=== PATIENT | male | born 1945 | race Caucasian/White ===

== ENCOUNTER → 2018-06-23 | Outpatient (CLI) | payer MEDICARE, BC ==
--- NOTE | 2018-06-23 17:01 | PCVCIMAG ---
APPROVED REPORT Study performed: 06/23/2018 13:55:09 Exam: Stress Echocardiogram Indication: Syncope Patient Location: Echo lab Stress Nurse: Tia Duran RN Room #: 2 Status: routine Ht: 5 ft 8 in HR: 84 bpm BP: 138/72 mmHg Rhythm: NSR Medical History Medical History: Diabetes Cardiac Risk Factors: DM Previous Cardiac Procedures: NONE Pretest Chest Pain Characteristics: No chest pain Exercise History: Indeterminate Procedure The patient underwent an Exercise Stress Test using the Raymond Protocol. Blood pressure, heart rate, and EKG were monitored. An Echocardiogram was performed by senior telecommunications technician in four stages in quad fashion. At peak stress, four selected images were obtained and placed side by side with resting images for comparison. Stress Test Details Stress Test: Exercise stress testing was performed using a Raymond protocol. HR Resting HR: 81 bpmMax Heart Rate (APMHR): 146 bpm Max HR Achieved: 166 bpmTarget HR (85% APMHR): 124 bpm % of APMHR: 113 Recovery HR: 100 bpm HR response to stress: Normal HR response to stress BP Resting BP: 138/72 mmHg Max BP: 162/80 mmHg Recovery BP: 136/78 mmHg BP response to stress: Normal blood pressure response to stress. ECG Resting ECG: Sinus Rhythm, nonspecific ST-T abnormalities Stress ECG: Sinus Rhythm, NSSTT changes ST Change: Normal Maximum ST Deviation: 0 mm Arrhythmia: Rare PVC Recovery ECG: Sinus Rhythm, NSSTT changes Recovery ST Change: Normal Recovery ST Deviation: 0 mm Recovery Arrhythmia: None Clinical Reason for Termination: Maximal effort Stress Symptoms: dyspnea,fatigue Exercise duration: 3 min 43 sec Highest Stage Achieved: Stage 2: 2.5 mph at 12% grade. Exercise capacity: 6.3 METs Overall Exercise Capacity for Age: Poor Angina Score: None No complications. Stress ECG Conclusion The patient exercised according to the RAYMOND protocol for 3:48 mins; achieving a work level of 6.3 METS. The resting heart rate of 81 bpm suni to a maximum heart rate of 166 bpm. This value represent 113% of the maximal, age-predicted heart rate. The resting blood pressure of 138/72 mmHg, suni to a maximum blood pressure of 162/80 mmHg. The exercise test was stopped due to fatigue and dyspnea. York Treadmill Score is 3.0 which is Moderate risk. Pre-Stress Echo The resting Echocardiogram showed normal left ventricular contractility with an estimated Ejection Fraction of about 55-60%. Normal wall motion in all segments on baseline images. Post-Stress Echo The stress Echocardiogram showed normal left ventricular contractility with an estimated Ejection Fraction of about 65-70%. Normal augmentation of wall motion in all segments on post stress images. Clinical No clinical or ECG evidence for ischemia. Conclusion Clinical Response: Non-ischemic Exercise Capacity: Below Average Stress ECG Response: Non-ischemic Stress Echo Images: Non-ischemic No clinical, EKG or echocardiographic evidence for ischemia. No echocardiographic evidence for exercise induced ischemia; LVH Normal stress echocardiogram with maximal exercise stress. <Conclusion> No clinical, EKG or echocardiographic evidence for ischemia. No echocardiographic evidence for exercise induced ischemia; LVH Normal stress echocardiogram with maximal exercise stress.
== END | disposition home or self-care (01) ==
LOC: PCVCIMAG 13:50
PROVIDERS: ATTEND Internal Medicine
DX: I10 Essential (primary) hypertension (principal); R55 Syncope and collapse; E11.9 Type 2 diabetes mellitus without complications; E78.5 Hyperlipidemia, unspecified; Z79.84 Long term (current) use of oral hypoglycemic drugs
CPT/HCPCS: 93325; 93351